=== PATIENT | male | born 1965 | race Caucasian/White ===

== ENCOUNTER 2018-12-08 12:10 | Outpatient (CLI) | payer OTHER ==
[2018-12-15 08:28] LABS: MAGNESIUM 2.1 mIU/l (1.6-2.3); eGFR (Non-African) > 60
== END 2018-12-08 13:00 ==
LOC: LAB 12:10
PROVIDERS: ATTEND Family Medicine
DX: R53.1 Weakness (principal)
CPT/HCPCS: 36415; 80048; 82607; 82746; 83735; 84207; 84425; 84443; 84591